=== PATIENT | female | born 1980 | race Caucasian/White ===

== ENCOUNTER 2021-06-21 17:34 | Emergency (ER) | payer OTHER, SELFPAY ==
[2021-06-21 17:46] VITALS: BP 137/80; PULSE 75; RESP 14; TEMP 36.7; O2SAT 99; BMI 22.4
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
== END 2021-06-21 19:15 | disposition home or self-care (01) ==
PROVIDERS: Emergency Provider Emergency Medicine
DX: T76.21XA Adult sexual abuse, suspected, initial encounter (principal)
CPT/HCPCS: 99281

== ENCOUNTER 2021-07-10 11:25 | Emergency (ER) | payer OTHER, SELFPAY ==
[2021-07-10 11:25] VITALS: BP 152/97; PULSE 82; RESP 18; TEMP 36.7; O2SAT 95
[2021-07-10 11:34] VITALS: PULSE 74; RESP 14; O2SAT 99
--- NOTE | 2021-07-10 11:36 | DI.RAD.S_ITS ---
PROCEDURE: XR CHEST 1V INDICATIONS: chest pain TECHNIQUE: One view of the chest was acquired. COMPARISON: None. FINDINGS: Surgical changes and devices: None. Lungs and pleura: Lungs are clear. No pleural effusions or pneumothorax. Mediastinum: Mediastinal contours appear normal. Heart size is normal. Bones and chest wall: No suspicious bony lesions. Overlying soft tissues appear unremarkable. IMPRESSION: No evidence acute pulmonary process. Dictated by: David Cardenas M.D. on 07/10/2021 at 12:04 Approved by: David Cardenas M.D. on 07/10/2021 at 12:04
[2021-07-10 12:00] VITALS: BP 130/87; PULSE 74; RESP 19; O2SAT 96
[2021-07-10 12:02] LABS: Add Manual Diff / Slide Review NO; Basophils Absolute Auto 100 /uL (0-100); Eosinophils Absolute Auto 700 /uL (0-450); Eosinophils Percent Auto 10.4 % (2-4); Hematocrit 41.8 % (36-46); Hemoglobin 14.1 g/dL (12.0-16.0); Lymphocytes Absolute Auto 1900 /uL (1100-4500); Lymphocytes Percent Auto 28.4 % (25-40); Mean Corpuscular HGB Conc 33.8 % (30-36); Mean Corpuscular Hemoglobin 29.8 PG (26-34); Mean Corpuscular Volume 88.1 fL (80-100); Monocytes Absolute Auto 500 /uL (0-900); Monocytes Percent Auto 8.1 % (3-14); Neutrophils Absolute Auto 3400 /uL (1500-7000); Neutrophils Percent Auto 52.1 % (50-75); Platelet Count 273 X10^3/uL (150-400); Red Blood Cell Count 4.75 X10^6/uL (4.0-5.2); Red Cell Distribution Width 12.9 % (11.6-14.8); White Blood Cell Count 6.5 X10^3/uL (4.5-11.0)
[2021-07-10 12:16] LABS: D Dimer < 200 ng/mL (<230)
[2021-07-10 12:25] LABS: Alanine Aminotransferase 18 IU/L (<35); Albumin 4.2 g/dL (3.5-5.0); Albumin Globulin Ratio 1.5 (1.0-2.8); Alkaline Phosphatase 70 U/L (38-126); Aspartate Aminotransferase 23 IU/L (14-36); BUN Creatinine Ratio 16.4 (6-22); Bilirubin Total 0.6 mg/dL (0.2-1.3); Blood Urea Nitrogen 9 mg/dL (7-17); Calcium 8.9 mg/dL (8.4-10.2); Carbon Dioxide 25 mmol/L (22-32); Chloride 110 mmol/L (98-107); Creatine Kinase 26 U/L (30-135); Estimated Glomerular Filt Rate > 60.0 mL/min (>60); Globulin 2.8 g/dL (1.7-4.1); Glucose 89 mg/dL (70-100); HEMOLYSIS < 15 (0-50); Lipase 152 U/L (23-300); Potassium 3.8 mmol/L (3.4-5.1); Sodium 140 mmol/L (137-145)
[2021-07-10 12:30] VITALS: BP 136/96; PULSE 73; RESP 17; O2SAT 96
[2021-07-10 12:37] LABS: Troponin I < 0.012 ng/mL (0.01-0.034)
--- NOTE | 2021-07-10 12:37 | ED_ITS ---
HPI - Chest Pain General Chief Complaint: Chest Pain Stated Complaint: severe chest pain, feeling of fire Time Seen by Provider: 07/10/21 11:40 Source: patient Mode of arrival: Wheelchair Limitations: no limitations History of Present Illness HPI narrative: Patient is a 41-year-old female who is here for evaluation of chest discomfort, feeling like her chest is on fire, she did receive her 1st COVID vaccine on Thursday of last week. She started feeling this way afterwards. No shortness of breath. Has had a DVT/PE in the past. Is not currently on any anticoagulation. Related Data Home Medications Medication Instructions Recorded Confirmed No Known Home Medications 07/10/21 07/10/21 Allergies Allergy/AdvReac Type Severity Reaction Status Date / Time No Known Drug Allergies Allergy Verified 06/21/21 17:46 Review of Systems Constitutional Constitutional: Reports fatigue and Denies fever(s) Cardiovascular Cardiovascular: Reports as per HPI Respiratory Respiratory: Reports system reviewed and no additional complaints, except as documented Gastrointestinal Gastrointestinal: Reports system reviewed and no additional complaints, except as documented, Denies nausea and Denies vomiting Genitourinary Genitourinary: Reports system reviewed and no additional complaints, except as documented Musculoskeletal Musculoskeletal: Reports system reviewed and no additional complaints, except as documented Integumentary/Breasts Skin/Breast: Reports system reviewed and no additional complaints, except as documented Neurologic Neurologic: Reports system reviewed and no additional complaints, except as documented Endocrine Endocrine: Reports fatigue Hematologic/Lymphatic On Anticoagulants: No Patient History Medical History Pulmonary embolism Social History Smoking Status: Former smoker Smoking Status: Former smoker alcohol intake frequency: 0-2 drinks per day Substance Use Type: does not use Exam Initial Vital Signs Initial Vital Signs: Vital Signs Temperature 98.1 F 07/10/21 11:25 Pulse Rate 82 07/10/21 11:25 Respiratory Rate 18 07/10/21 11:25 Blood Pressure 152/97 H 07/10/21 11:25 Pulse Oximetry 95 07/10/21 11:25 Const General: cooperative, comfortable and well developed HENAK Head: normal to inspection and normocephalic Eyes General: appearance normal, both eyes and all related structures Resp Effort & Inspection: normal respiratory effort Auscultation: clear to auscultation bilaterally Cardio Rate: regular rate Rhythm: regular rhythm GI Palpation: soft and No tender Back/Spine/Pelvis Back: normal to inspection Skin General: no rashes or lesions noted Neuro General: patient alert, patient awake, patient oriented x3 and moves all extremities Extrem General: normal to inspection and capillary refill normal Psych Appearance: grossly normal and well kempt Scores GCS Eri coma scale eye opening: Spontaneous [place] coma scale verbal response: Orientated [place] coma scale motor response: Obey commands [place] coma scale total score: 15 Course Orders Ordered: ED Orders 07/10/21 11:36 XR chest 1V Stat EKG-12 Lead Stat 07/10/21 11:56 Complete Blood Count AUTO DIFF Stat Comprehensive Metabolic Panel Stat D Dimer Stat Lipase Stat Troponin & CK Cardiac Panel Stat Vital Signs Vital signs: Vital Signs - 8 hr 07/10/21 11:25 07/10/21 11:34 07/10/21 12:00 Temperature 98.1 F Pulse Rate 82 74 74 Respiratory Rate 18 14 19 Blood Pressure 152/97 H 130/87 Pulse Oximetry 95 99 96 07/10/21 12:30 Temperature Pulse Rate 73 Respiratory Rate 17 Blood Pressure 136/96 H Pulse Oximetry 96 MDM - Chest Pain Lab Data Attestation: I reviewed the patient's lab results. Result diagrams: 07/10/21 11:56 07/10/21 11:56 Labs: Lab Results 07/10/21 07/10/21 07/10/21 Range/Units 11:56 11:56 11:56 WBC 6.5 (4.5-11.0) X10^3/uL RBC 4.75 (4.0-5.2) X10^6/uL Hgb 14.1 (12.0-16.0) g/dL Hct 41.8 (36-46) % MCV 88.1 (80-100) fL MCH 29.8 (26-34) PG MCHC 33.8 (30-36) % RDW 12.9 (11.6-14.8) % Plt Count 273 (150-400) X10^3/uL Neut % (Auto) 52.1 (50-75) % Lymph % (Auto) 28.4 (25-40) % [place] % (Auto) 8.1 (3-14) % Eos % (Auto) 10.4 H (2-4) % Baso % (Auto) 1.0 (0-2) % Neut # (Auto) 3400 (5086-2182) /uL Lymph # (Auto) 1900 (2185-2920) /uL [place] # (Auto) 500 (0-900) /uL Eos # (Auto) 700 H (0-450) /uL Baso # (Auto) 100 (0-100) /uL D-Dimer < 200 (<230) ng/mL Sodium 140 (137-145) mmol/L Potassium 3.8 (3.4-5.1) mmol/L Chloride 110 H (98-107) mmol/L Carbon Dioxide 25 (22-32) mmol/L BUN 9 (7-17) mg/dL Creatinine 0.55 (0.52-1.04) mg/dL Estimated GFR > 60.0 (>60) mL/min BUN/Creatinine Ratio 16.4 (6-22) Glucose 89 (70-100) mg/dL Calcium 8.9 (8.4-10.2) mg/dL Total Bilirubin 0.6 (0.2-1.3) mg/dL AST 23 (14-36) IU/L ALT 18 (<35) IU/L Alkaline Phosphatase 70 (38-126) U/L Total Creatine Kinase 26 L (30-135) U/L CK-MB (CK-2) TNP CK-MB (CK-2) Rel Index TNP Troponin I < 0.012 (0.01-0.034) ng/mL Total Protein 7.0 (6.3-8.2) g/dL Albumin 4.2 (3.5-5.0) g/dL Globulin 2.8 (1.7-4.1) g/dL Albumin/Globulin Ratio 1.5 (1.0-2.8) Lipase 152 (23-300) U/L Imaging Data Chest x-ray: Radiologist's Impression: [address] [address] XRay Report Signed Patient: Eran Bach MR#: [id number] : 1980 Acct:[id number] Age/Sex: 41 / F Date of Service: 07/10/21 Loc: ED Accession Number: [id number] ?? Procedure: XR chest 1V Ordering Provider: See Null D.O. PROCEDURE:? XR CHEST 1V ? INDICATIONS:? chest pain ? TECHNIQUE:? One view of the chest was acquired.? ? COMPARISON:? None. ? FINDINGS:? ? Surgical changes and devices:? None.? ? Lungs and pleura:? Lungs are clear.? No pleural effusions or pneumothorax.? ? Mediastinum:? Mediastinal contours appear normal.? Heart size is normal.? ? Bones and chest wall:? No suspicious bony lesions.? Overlying soft tissues appear unremarkable.? ? IMPRESSION:? No evidence acute pulmonary process. ? ? ? Dictated by: David Cardenas M.D. on 07/10/2021 at 12:04 ? ? Approved by: David Cardenas M.D. on 07/10/2021 at 12:04?? ECG Data Attestation: I personally reviewed and interpreted this ECG as follows: Interpretation: Sinus rhythm Normal axis Normal QRS Normal QTC No ST T wave changes MDM Narrative Medical decision making narrative: Nontoxic, afebrile, chest x-ray is normal, EKG is unremarkable, D-dimer is negative. Indication for antibiotics. No indication for further radiologic studies. Her symptoms could potentially be related to the vaccine. Low suspicion for pericarditis given her presentation. She was given return precautions and follow-up instructions. She expressed understanding and agreement. Discharge Plan Departure Patient Disposition: Home Clinical Impression: Atypical chest pain Instructions: DI for Atypical Chest Pain Activity Restrictions/Additional Instructions: Your workup here in the emergency department is very reassuring. Your heart workup is normal. There is no signs of pneumonia. I have low suspicion this is a pulmonary embolism. The could very well be related to your COVID vaccine. This should improve over the next couple days. Contact your primary doctor for a follow-up. Return to the emergency department for any new or worsening symptoms Prescriptions: No Action No Known Home Medications RF: 0
[2021-07-10 13:00] VITALS: BP 152/98; PULSE 72; RESP 20; O2SAT 98
== END 2021-07-10 13:15 | disposition home or self-care (01) ==
PROVIDERS: Emergency Provider Emergency Medicine
DX: R07.89 Other chest pain (principal); Z86.711 Personal history of pulmonary embolism
CPT/HCPCS: 36415; 71045; 80053; 82550; 83690; 84484; 85025; 85379; 93005; 93010; 99283; 99284